=== PATIENT | female | born 1990 | race Caucasian/White ===

== ENCOUNTER 2017-11-25 15:58 | Inpatient (IN) | payer OTHER ==
[~2017-11-25] VITALS: Ht 162.6 cm; Wt 103.4 kg
[~2017-11-25 15:58] MED LIST: AUGMENTIN 875 M1 TAB PO; NUVARING1 ICR VG; PREDNISONE 20MG20 MG PO; PRENATAL TABLE1 EAC2 PO; TESSALON PERLE100 MG PO; ZITHROMAX Z-PA250 M1 PO
[2017-11-25 16:39] VITALS: BP 128/64
--- NOTE | 2017-11-25 17:12 | History & Physical ---
General Information and HPI MD Statement: I have seen and personally examined JOHNNIE MARTINEZ and documented this H&P. Source of Information: patient, old records Exam Limitations: no limitations History of Present Illness: The patient is a 27 year old at 40 weeks and 4 days gestation who presented with a chief complaint of LOF 3p, clr. Irreg painful ctx, spotting, +FM. AP care c/b GBS pos Ucx 1st trim. 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 Past Pregnancies Past Pregnancies: 1 Date of Delivery: 08/25/13 Gestational Age: 42 Length of Labor: 25hrs Weight: 7#6 Type of Delivery: vaginal Anesthesia: epidural Place of Delivery: [facility] Complications: none Past Pregnancies: 2 Date of Delivery: vtop Medical History Neurological: NONE EENT: NONE Cardiovascular: NONE Respiratory: asthma Gastrointestinal: NONE Hepatic: NONE Renal: NONE Musculoskeletal: NONE Psychiatric: NONE Endocrine: hypothyroidism (no meds) Blood Disorders: NONE Cancer(s): NONE 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 No Contractions: q 2-4 #1 - FHR Baseline: 130 Category: 1 Estimated Weight: 3800 Presentation: vtx Patient for Induction? No Physical Exam: nad rrr cta soft nt gravid nt +1 b/l le ed Labs Blood Type & Rh: Bpos Antibody Screen: neg Hct/Hgb & Platelets #1: 12.3/ 37.4, 196 Hct/Hgb & Platelets #2: 10.4/ 34.5, 234 Rubella: immimm VDRL #1: neg VDRL #2: neg HbsAg: neg HIV #1: neg HIV #2 neg 1 Hr P Group B Strep: pos Initial Ultrasound: 05/05/17 siup 11+3 Anatomy Ultrasound: 07/09/17 nl wilbert Ultrasound for EFW: 10/29/17 efw 71% Genetic Testing: cffdna wnl msafp wnl Last 24 Hrs of Labs/Huber: Laboratory Tests 11/25/17 1645: CBC w Diff Pending, WBC Pending, RBC Pending, Hgb Pending, Hct Pending, MCV Pending, MCH Pending, MCHC Pending, RDW Pending, Plt Count Pending, MPV Pending 11/25/17 1610: Membrane Rupture POSITIVE Assessment/Plan Assessment/Plan: 27yo P1 @ 40+3 SROM, GBS pos, early labor, and maternal status reassuring -Admit -start PCN GBS proph -expectant mgmt -pain mgmt prn ANSVD As Ranked By This Provider Problem List: 1. Core Measures Venous Thromboembolism VTE Risk Factors / No Mechanical VTE Prophylaxis d/t LowRisk-No Interven Req'd No VTE Pharm Prophylaxis d/t LowRisk-No Interven Req'd Attending MD Review Statement Attending Statement Attending MD Statement: examined this patient, discussed with family, discussed w/nursing
[2017-11-25 17:55] LABS: ABSOLUTE BASOPHIL COUNT 0 /CUMM (0.0-0.2); ABSOLUTE EOSINOPHIL COUNT 0.1 /CUMM (0.0-0.7); ABSOLUTE GRANULOCYTE CT 8.6 /CUMM (1.4-6.5); ABSOLUTE LYMPH COUNT 1.8 /CUMM (1.2-3.4); ABSOLUTE MONOCYTE COUNT 0.6 /CUMM (0.10-0.60); BASOPHIL % 0.4 % (0.0-2.0); GRANULOCYTE % 76.5 % (42.2-75.2); HEMATOCRIT 35.7 % (37-47); MEAN CORPUSCULAR HGB 29.7 PG (27.0-31.0); MEAN CORPUSCULAR HGB CONC 33.5 G/DL (33.0-37.0); MEAN CORPUSCULAR VOLUME 88.6 FL (81.0-99.0); PLATELET COUNT 233 /CUMM (130-400); RBC DISTRIBUTION WIDTH 16.2 % (11.5-14.5); RED BLOOD CELL CT 4.03 /CUMM (4.20-5.40); WHITE BLOOD CELL COUNT 11.2 /CUMM (4.8-10.8)
--- NOTE | 2017-11-25 18:39 | PN- OBGYN ---
Surgical Brief Attending Note Brief Attending Note: pt feeling urge to push during epidural placement afeb, v/ss fht 130s moderate variability +acc no dec toco q 2-3 sve 8/70/-2 A/P P1 40+wks active labor, gbs pos on pcn, and maternal status reassuring -cont current mgmt -ansvd
--- NOTE | 2017-11-25 21:23 | Labor & Delivery Summary ---
Delivery Summary Vaginal Delivery: Vaginal: spontaneous Episiotomy/Lacerations: Type: 1st deg Repair: 3-0 new Anesthesia: epidural Placenta: Placenta: spontanteous, normal, 3 vessel, nuchal cord (x_) (1) Anesthesia: block Apgars - 1 Min: 8 Apgars - 5 Min: 9 Additional Comments: Pt FD / +3 and pushing with epidural. Controlled of live female, apg 8. Head delivered from JONEL. Nuchal cord x 1 reduced. Body delivered w/o difficulty. Baby to mom. Cord clamped and cut. 3vc plac del spont intact. Fundus contracted. 1st deg lac repaired usual fashion 3-0 new. Excellent hemostasis. Pt ibrahima well. EBL 250cc.
[2017-11-26 09:41] LABS: ABSOLUTE BASOPHIL COUNT 0 /CUMM (0.0-0.2); ABSOLUTE EOSINOPHIL COUNT 0.1 /CUMM (0.0-0.7); ABSOLUTE LYMPH COUNT 1.6 /CUMM (1.2-3.4); ABSOLUTE MONOCYTE COUNT 0.6 /CUMM (0.10-0.60); BASOPHIL % 0.4 % (0.0-2.0); EOSINOPHIL % 0.8 % (0-5); GRANULOCYTE % 79.5 % (42.2-75.2); HEMATOCRIT 34.7 % (37-47); MEAN CORPUSCULAR HGB 29.9 PG (27.0-31.0); MEAN CORPUSCULAR HGB CONC 33.6 G/DL (33.0-37.0); MEAN CORPUSCULAR VOLUME 89.1 FL (81.0-99.0); MEAN PLATELET VOLUME 8.2 FL (7.4-10.4); PLATELET COUNT 191 /CUMM (130-400); RBC DISTRIBUTION WIDTH 16.7 % (11.5-14.5); WHITE BLOOD CELL COUNT 11.3 /CUMM (4.8-10.8)
--- NOTE | 2017-11-26 09:52 | PN- Post Delivery/GYN ---
Subjective Subjective: FEELING WELL Review of Systems Constitutional: Reports: no symptoms. EENTM: Denies: blurred vision, double vision, visual changes. Cardiovascular: Denies: chest pain, edema. Gastrointestinal: Denies: diarrhea, nausea, vomiting. Neurological/Psychological: Denies: anxiety, depressed. Objective Last 24 Hrs of Vital Signs/I&O VSS Vital Signs Date Time Temp Pulse Resp B/P B/P Pulse O2 O2 Flow FiO2 Mean Ox Delivery Rate 11/25 1639 128/64 Intake & Output 11/26 1600 11/26 0800 11/26 0000 Intake Total Output Total Balance Patient 228 lb Weight Physical Exam General Appearance Alert, Oriented X3, Cooperative, No Acute Distress Cardiovascular Regular Rate Lungs Clear to Auscultation, Normal Air Movement Abdomen Soft, FUNDUS FIRM Pelvic (FEMALE) LOCHIA SEROSANGANOUS Current Medications: Current Medications Sig/Luke Start time Last Medication Dose Route Stop Time Status Admin Acetaminophen 650 MG Q4P PRN 11/25 2114 AC PO Bupivacaine HCl 10 ML .STK-MED ONE 11/25 1943 DC EPID 11/25 1944 Docusate Sodium 100 MG BID PRN 11/25 2114 AC PO Ibuprofen 800 MG Q6P PRN 11/25 2114 AC 11/26 PO 0932 Lactated Ringer's 1,000 ML Q8H 11/25 1800 DC 11/25 IV 1816 Lactated Ringer's 1,000 ML .Q1H1M 11/25 1700 DC 11/25 IV 11/25 1800 1711 Ondansetron HCl 4 MG ONCE ONE 11/25 1815 DC 11/25 IV 11/25 1816 1816 Oxytocin 20 UNITS Q5H 11/25 2115 DC Lactated Ringer's 1,000 ML IV 11/26 0214 Penicillin G 2.5 MU Q4H 11/25 2100 AC Potassium IV Dextrose/Water 100 ML Penicillin G 5 MU ONCE ONE 11/25 1700 DC 11/25 Potassium IV 11/25 1729 1711 Dextrose/Water 100 ML Last 24 Hrs of Labs/Huber: Laboratory Tests 11/26/17 0721: CBC w Diff Pending, WBC Pending, RBC Pending, Hgb Pending, Hct Pending, MCV Pending, MCH Pending, MCHC Pending, RDW Pending, Plt Count Pending, MPV Pending 11/25/17 1645: CBC w Diff NO MAN DIFF REQ, RBC 4.03 L, MCV 88.6, MCH 29.7, MCHC 33.5, RDW 16.2 H, MPV 8.0, Gran % 76.5 H, Lymphocytes % 16.4 L, Monocytes % 5.7, Eosinophils % 1.0, Basophils % 0.4, Absolute Granulocytes 8.6 H, Absolute Lymphocytes 1.8, Absolute Monocytes 0.6, Absolute Eosinophils 0.1, Absolute Basophils 0, Urine Color YEL, Urine Clarity HAZY H, Urine pH 7.0, Ur Specific [place] 1.010, Urine Protein NEG, Urine Ketones NEG, Urine Nitrite NEG, Urine Bilirubin NEG, Urine Urobilinogen 0.2, Ur Leukocyte Esterase MOD H, Ur Microscopic SEDIMENT EXAMINED , Urine RBC RARE, Urine WBC 15-25 H, Ur Epithelial Cells MOD H, Urine Bacteria FEW H, Urine Mucus FEW, Urine Hemoglobin TRACE-INTACT, Urine Glucose NEG 11/25/17 1610: Membrane Rupture POSITIVE Assessment/Plan Assessment/Plan ppd #1 VSS AFEBRILE PLAN PP TEACHING Problem List: 1. Attending MD Review Statement Attending Statement Attending MD Statement: examined this patient, discussed with family, discussed with nursing
--- NOTE | 2017-11-27 10:40 | PN- Post Delivery/GYN ---
Subjective Subjective: feeling well asking to go home Review of Systems Constitutional: Reports: no symptoms. Denies: chills, fever. EENTM: Denies: blurred vision, double vision, visual changes. Cardiovascular: Denies: chest pain, edema. Respiratory: Denies: short of breath. Gastrointestinal: Denies: nausea, vomiting. Genitourinary: Denies: dysuria. Neurological/Psychological: Denies: anxiety, depressed. Objective Last 24 Hrs of Vital Signs/I&O vss Physical Exam General Appearance Alert, Oriented X3, Cooperative, No Acute Distress Cardiovascular Regular Rate Lungs Clear to Auscultation Abdomen Soft, fundus firm Neurological Normal Tone Extremities No Edema Pelvic (FEMALE) lochia serosanganous Current Medications: Current Medications Sig/Luke Start time Last Medication Dose Route Stop Time Status Admin Acetaminophen 650 MG Q4P PRN 11/25 2114 AC PO Docusate Sodium 100 MG BID PRN 11/25 2114 AC PO Ibuprofen 800 MG .STK-MED ONE 11/26 2139 DC PO 11/26 2140 Ibuprofen 800 MG .STK-MED ONE 11/26 1552 DC PO 11/26 1553 Ibuprofen 800 MG Q6P PRN 11/25 2114 AC 11/27 PO 0925 Penicillin G 2.5 MU Q4H 11/25 2100 AC Potassium IV Dextrose/Water 100 ML Assessment/Plan Assessment/Plan ppd #2 vss afebrile plan d/c home Problem List: 1. Attending MD Review Statement Attending Statement Attending MD Statement: examined this patient, discussed with family, discussed with nursing
[2017-11-27] MEDS ORDERED: IBUPROFEN800 M1 PO (10:41)
== END 2017-11-27 11:30 | DRG 560 ==
LOC: CBCO 15:58 → GNO 16:27
PROVIDERS: Obstetrics & Gynecology
PROC: 10E0XZZ Delivery of Products of Conception, External Approach (ICD-10-PCS; principal; 2017-11-25)
PROC: 0HQ9XZZ Repair Perineum Skin, External Approach (ICD-10-PCS; principal; 2017-11-25)
DX: O70.0 First degree perineal laceration during delivery (principal); O69.81X0 Labor and delivery complicated by cord around neck, without compression, not applicable or unspecified; O99.284 Endocrine, nutritional and metabolic diseases complicating childbirth; E03.9 Hypothyroidism, unspecified; O99.824 Streptococcus B carrier state complicating childbirth; J45.909 Unspecified asthma, uncomplicated; O99.52 Diseases of the respiratory system complicating childbirth; Z3A.40 40 weeks gestation of pregnancy; Z37.0 Single live birth
CPT/HCPCS: GNOS; 36415; 81001; 84112; J2405; J7120